=== PATIENT | female | born 2000 | race Caucasian/White ===

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

== ENCOUNTER 2019-08-18 22:15 | Emergency (ER) | payer MEDICAID, OTHER ==
[2019-08-18 22:48] VITALS: BP 116/78; PULSE 96; RESP 18; TEMP 97.9
--- NOTE | 2019-08-18 23:14 | ED ---
Upper Extremity HPI - General Chief Complaint: Extremity Injury, Upper Stated Complaint: Elbow Injury Time Seen by Provider: 08/18/19 22:50 Source: patient, RN notes reviewed, old records reviewed Mode of arrival: ambulatory Limitations: no limitations - History of Present Illness Initial Comments: Patient is a 19-year-old female presents emergency room today complaining of right elbow pain. Patient reportedly fell while rollerblading on outstretched hand. She complains of pain in the forearm and the elbow. She denies any wrist or hand pain. She is right-handed. She states she's previously seen orthopedic Dr. Burgos or other injuries. Patient denies any head or neck pain or other injury related to falling. - Related Data Home Medications Medication Instructions Recorded Confirmed buPROPion [Wellbutrin] 450 mg PO DAILY 01/29/16 12/19/17 lamoTRIgine [LaMICtal] 200 mg PO DAILY 01/29/16 12/19/17 Previous Rx's Medication Instructions Recorded Ibuprofen [Motrin] 600 mg PO Q8HR PRN #20 tab 08/19/19 Allergies Allergy/AdvReac Type Severity Reaction Status Date / Time Macrolide Antibiotics Allergy Rash/Hives Verified 08/18/19 22:48 Penicillins Allergy Rash/Hives Verified 08/18/19 22:48 Review of Systems ROS Statement: Those systems with pertinent positive or pertinent negative responses have been documented in the HPI. ROS Other: All systems not noted in ROS Statement are negative. Past Medical History Past Medical History: No Reported History Additional Past Medical History / Comment(s): depression History of Any Multi-Drug Resistant Organisms: None Reported Past Surgical History: No Surgical Hx Reported Past Psychological History: Bipolar, Depression Smoking Status: Never smoker Past Alcohol Use History: Occasional Past Drug Use History: None Reported General Exam - General Exam Comments Initial Comments: 19 year old female no distress. Limitations: no limitations General appearance: alert, in no apparent distress Head exam: Present: atraumatic, normocephalic, normal inspection Eye exam: Present: normal appearance, PERRL, EOMI. Absent: scleral icterus, conjunctival injection, periorbital swelling ENT exam: Present: normal exam, mucous membranes moist Neck exam: Present: normal inspection. Absent: tenderness, meningismus, lymphadenopathy Respiratory exam: Present: normal lung sounds bilaterally. Absent: respiratory distress, wheezes, rales, rhonchi, stridor Cardiovascular Exam: Present: regular rate, normal rhythm, normal heart sounds. Absent: systolic murmur, diastolic murmur, rubs, gallop, clicks GI/Abdominal exam: Present: soft, normal bowel sounds. Absent: distended, tenderness, guarding, rebound, rigid Right Upper Arm exam: Present: normal inspection, full ROM Elbow exam: Present: tenderness (radial head), swelling. Absent: normal inspection Forearm Wrist exam: Present: normal inspection. Absent: full ROM (pain with pronotion and supination) Neurological exam: Present: alert, oriented X3, CN II-XII intact Course Vital Signs 08/18/19 22:45 Temperature 97.9 F Pulse Rate 96 Respiratory 18 Rate Blood Pressure 116/78 O2 Sat by Pulse 100 Oximetry Procedures - Orthopedic Splinting/Casting Injury #1 Side: right Upper Extremity Injury Location: elbow Upper Extremity Immobilizer: sugar tong splint, Laz wrap, synthetic pre-padded splint Medical Decision Making - Medical Decision Making 19 year old female presents with R elbow injury after rollerbladding and falling on outstretched hand. Patient has swelling over right elbow. Patient xray shows joint effusiona nd to anticipate an occult fracture. Patient is neurovascularly intact. Patient placed in sugar tong splint and sling. Advised ortho follow up. - Radiology Data Radiology results: report reviewed Xray elbow shows joint effusion, suspected occult fracture. Disposition Clinical Impression: Elbow joint effusion, Right radial head fracture Disposition: HOME SELF-CARE Condition: Good Instructions (If sedation given, give patient instructions): Elbow Fracture (ED) Additional Instructions: Please use medication as discussed. Remain in splint all the time until ortho follow up. Please follow up with family doctor if symptoms have not improved over the next two days. Please return to the emergency room if your symptoms increase or worsen or for any other concerns. Prescriptions: Ibuprofen [Motrin] 600 mg PO Q8HR PRN #20 tab PRN Reason: Pain Is patient prescribed a controlled substance at d/c from ED?: No Referrals: Dario Whalen MD [Primary Care Provider] - 1-2 days Jamil Erickson MD [STAFF PHYSICIAN] - 1-2 days Time of Disposition: 00:08
--- NOTE | 2019-08-18 23:54 | XR ---
EXAMINATION TYPE: XR elbow complete RT DATE OF EXAM: 08/18/2019 COMPARISON: NONE HISTORY: Pain TECHNIQUE: 3 views FINDINGS: I see no fracture nor dislocation. There is however significant elbow joint effusion with p osterior fat pad sign. IMPRESSION: Elbow joint effusion. Occult fracture is suspected. No fracture line identified.
--- NOTE | 2019-08-18 23:55 | XR ---
EXAMINATION TYPE: XR forearm RT DATE OF EXAM: 08/18/2019 COMPARISON: NONE HISTORY: Pain TECHNIQUE: 2 views FINDINGS: Radius and ulna appear intact. I see no fracture nor dislocation. There is elbow joint effu daphne. Wrist joint appears intact. IMPRESSION: No fracture seen. Elbow joint effusion is present.
[2019-08-19] MEDS ORDERED: ONDANSETRON 4 MG ODT STARTER PACK 2 TAB BTL PO STA (00:10)
[2019-08-19] MEDS ORDERED: ACET/COD 300 MG/30 MG STARTER PACK 6 TAB BTL PO STA (00:10)
== END 2019-08-19 00:25 | disposition home or self-care (01) ==
LOC: EC 22:15
DX: S52.121A Displaced fracture of head of right radius, initial encounter for closed fracture (principal); F31.9 Bipolar disorder, unspecified; Z79.899 Other long term (current) drug therapy; Z88.0 Allergy status to penicillin; Z88.1 Allergy status to other antibiotic agents; V00.121A Fall from non-in-line roller-skates, initial encounter; Y93.51 Activity, roller skating (inline) and skateboarding
CPT/HCPCS: 99284; 29125; 73080; 73090; S0119

== ENCOUNTER 2019-12-01 21:47 | Emergency (ER) | payer MEDICAID, OTHER ==
[2019-12-01] MEDS ORDERED: SODIUM CHLORIDE 0.9% 1,000 ML IV ONE (22:20)
[2019-12-01] MEDS ORDERED: KETOROLAC 15 MG/ML 1 ML VIAL IVP STA (22:20)
[2019-12-01 22:59] LABS: Basophils % (A) 0 %; Eosinophils # (A) 0.3 k/uL (0-0.7); Eosinophils % (A) 4 %; HCT 43.2 % (34.0-46.0); HGB 14.1 gm/dL (11.4-16.0); Lymphocytes # (A) 1.3 k/uL (1.0-4.8); Lymphocytes % (A) 14 %; MCH 30.1 pg (25.0-35.0); MCHC 32.8 g/dL (31.0-37.0); MCV 91.8 fL (80.0-100.0); Mean Platelet Volume 6.7; Monocytes # (A) 0.4 k/uL (0-1.0); Monocytes % (A) 4 %; Neutrophils # (A) 7.3 k/uL (1.3-7.7); Neutrophils % (A) 77 %; Platelet Count 397 k/uL (150-450); RDW 12.4 % (11.5-15.5); WBC 9.5 k/uL (3.8-10.6)
[2019-12-01 23:02] LABS: Bacteria,Urine Few /hpf; Budding Yeast,Urine Many /hpf; Mucus,Urine Many /hpf; RBC,Urine >182 /hpf (0-5); Squamous Epithelial Cell,Urine 7 /hpf (0-4); WBC,Urine >182 /hpf (0-5)
[2019-12-01 23:04] LABS: Color,Urine Dark Red
[2019-12-01 23:05] LABS: Appearance,Urine Bloody (Clear)
--- NOTE | 2019-12-01 23:19 | ED ---
General Adult HPI - General Chief complaint: Urogenital Stated complaint: Blood in Urine Time Seen by Provider: 12/01/19 22:07 Source: patient Mode of arrival: ambulatory Limitations: no limitations - History of Present Illness Initial comments: 19-year-old female patient presents to the emergency department today for evaluation of blood in her urine. Patient states that yesterday she is having some mild generalized abdominal cramping. States that today she continued to have like suprapubic cramping and then noticed that her urine was turning red. Patient states she is having pain more on the right side and in the right flank region. She denies dysuria or urinary frequency. She states that she has felt chilled and nauseated. Denies any vomiting. Denies any known fever. Denies chance of , states she receives Depo-Provera shot. States that she had some vaginal spotting about a month and a half ago, states this is usual for her periods given control. She denies history of abdominal surgery. Denies history of kidney stone. Patient denies any recent rash, cough, shortness of breath, chest pain, diarrhea, constipation, back pain, numbness, tingling, dizziness, weakness, headache, visual changes, or any other complaints. - Related Data Home Medications Medication Instructions Recorded Confirmed buPROPion [Wellbutrin] 450 mg PO DAILY 01/29/16 12/02/19 lamoTRIgine [LaMICtal] 200 mg PO DAILY 01/29/16 12/02/19 Previous Rx's Medication Instructions Recorded Ibuprofen [Motrin] 600 mg PO Q8HR PRN #20 tab 08/19/19 Cephalexin [Keflex] 500 mg PO Q6HR #40 cap 12/02/19 Allergies Allergy/AdvReac Type Severity Reaction Status Date / Time Macrolide Antibiotics Allergy Rash/Hives Verified 12/01/19 21:49 Penicillins Allergy Rash/Hives Verified 12/01/19 21:49 Review of Systems ROS Statement: Those systems with pertinent positive or pertinent negative responses have been documented in the HPI. ROS Other: All systems not noted in ROS Statement are negative. Past Medical History Past Medical History: No Reported History Additional Past Medical History / Comment(s): depression History of Any Multi-Drug Resistant Organisms: None Reported Past Surgical History: No Surgical Hx Reported Past Psychological History: Bipolar, Depression Smoking Status: Never smoker Past Alcohol Use History: Occasional Past Drug Use History: None Reported General Exam Limitations: no limitations General appearance: alert, in no apparent distress, other (This is a well-developed, well-nourished adult female patient in no acute distress. Vital signs upon presentation are temperature 98.7F, pulse 108, respirations 16, blood pressure 122/79, pulse ox 97% on room air.) Eye exam: Present: normal appearance, PERRL, EOMI. Absent: scleral icterus, con junctival injection, periorbital swelling ENT exam: Present: normal exam, normal oropharynx, mucous membranes moist Respiratory exam: Present: normal lung sounds bilaterally. Absent: respiratory distress, wheezes, rales, rhonchi, stridor Cardiovascular Exam: Present: regular rate, normal rhythm, normal heart sounds. Absent: systolic murmur, diastolic murmur, rubs, gallop, clicks GI/Abdominal exam: Present: soft, normal bowel sounds. Absent: distended, tenderness, guarding, rebound, rigid Back exam: Present: normal inspection. Absent: CVA tenderness (R), CVA tendern ess (L) Neurological exam: Present: alert, oriented X3, CN II-XII intact Psychiatric exam: Present: normal affect, normal mood Skin exam: Present: warm, dry, intact, normal color. Absent: rash Course Vital Signs 12/01/19 12/02/19 21:49 00:40 Temperature 98.7 F 96.8 F L Pulse Rate 108 H 104 H Respiratory 16 20 Rate Blood Pressure 122/79 120/67 O2 Sat by Pulse 97 99 Oximetry Medical Decision Making - Medical Decision Making 19-year-old female patient presents to the emergency department today for andreas luation of blood in her urine and suprapubic cramping. Physical examination revealed no CVA tenderness. No abdominal tenderness. Labs reviewed and did reveal normal white blood cell count. Creatinine was 1.11. Urinalysis showed a dark red, bloody appearance, greater than 182 red blood cells, greater than 182 white blood cells, many white blood cell clumps, 7 squamous epithelial cells, few bacteria, many mucus, many. She did have a negative test. CT of the abdomen and pelvis without contrast was obtained, no evidence for kidney stone, no other abnormalities noted. We did discuss her results. She was given IV fluids, IV Rocephin. She'll be discharged with prescription for Keflex to treat hemorrhagic cystitis. Instructed to follow-up with her primary care physician for recheck in 1-2 days. Return parameters were discussed in detail. She verbalizes understanding and agrees with this plan. - Lab Data Result diagrams: 12/01/19 22:43 12/01/19 22:43 Lab Results 12/01/19 12/01/19 12/01/19 Range/Units 22:43 22:43 22:43 WBC 9.5 (3.8-10.6) k/uL RBC 4.70 (3.80-5.40) m/uL Hgb 14.1 (11.4-16.0) gm/dL Hct 43.2 (34.0-46.0) % MCV 91.8 (80.0-100.0) fL MCH 30.1 (25.0-35.0) pg MCHC 32.8 (31.0-37.0) g/dL RDW 12.4 (11.5-15.5) % Plt Count 397 (150-450) k/uL Neutrophils % 77 % Lymphocytes % 14 % Monocytes % 4 % Eosinophils % 4 % Basophils % 0 % Neutrophils # 7.3 (1.3-7.7) k/uL Lymphocytes # 1.3 (1.0-4.8) k/uL Monocytes # 0.4 (0-1.0) k/uL Eosinophils # 0.3 (0-0.7) k/uL Basophils # 0.0 (0-0.2) k/uL Sodium (137-145) mmol/L Potassium (3.5-5.1) mmol/L Chloride (98-107) mmol/L Carbon Dioxide (22-30) mmol/L Anion Gap mmol/L BUN (7-17) mg/dL Creatinine (0.52-1.04) mg/dL Est GFR (CKD-EPI)AfAm (>60 ml/min/1.73 sqM) Est GFR (CKD-EPI)NonAf (>60 ml/min/1.73 sqM) Glucose (74-99) mg/dL Calcium (8.4-10.2) mg/dL Total Bilirubin (0.2-1.3) mg/dL AST (14-36) U/L ALT (4-34) U/L Alkaline Phosphatase (38-126) U/L Total Protein (6.3-8.2) g/dL Albumin (3.5-5.0) g/dL Urine Color Dark Red Urine Appearance Bloody H (Clear) Urine RBC >182 H (0-5) /hpf Urine WBC >182 H (0-5) /hpf Urine WBC Clumps Many H (None) /hpf Ur Squamous Epith Cells 7 H (0-4) /hpf Urine Bacteria Few H (None) /hpf Urine Mucus Many H (None) /hpf Urine Yeast (Budding) Many H (None) /hpf Urine HCG, Qual Not Detected (Not Detectd) 12/01/19 Range/Units 22:43 WBC (3.8-10.6) k/uL RBC (3.80-5.40) m/uL Hgb (11.4-16.0) gm/dL Hct (34.0-46.0) % MCV (80.0-100.0) fL MCH (25.0-35.0) pg MCHC (31.0-37.0) g/dL RDW (11.5-15.5) % Plt Count (150-450) k/uL Neutrophils % % Lymphocytes % % Monocytes % % Eosinophils % % Basophils % % Neutrophils # (1.3-7.7) k/uL Lymphocytes # (1.0-4.8) k/uL Monocytes # (0-1.0) k/uL Eosinophils # (0-0.7) k/uL Basophils # (0-0.2) k/uL Sodium 140 (137-145) mmol/L Potassium 3.9 (3.5-5.1) mmol/L Chloride 105 (98-107) mmol/L Carbon Dioxide 26 (22-30) mmol/L Anion Gap 9 mmol/L BUN 7 (7-17) mg/dL Creatinine 1.11 H (0.52-1.04) mg/dL Est GFR (CKD-EPI)AfAm 82 (>60 ml/min/1.73 sqM) Est GFR (CKD-EPI)NonAf 71 (>60 ml/min/1.73 sqM) Glucose 114 H (74-99) mg/dL Calcium 10.1 (8.4-10.2) mg/dL Total Bilirubin 0.5 (0.2-1.3) mg/dL AST 33 (14-36) U/L ALT 21 (4-34) U/L Alkaline Phosphatase 85 (38-126) U/L Total Protein 7.7 (6.3-8.2) g/dL Albumin 4.9 (3.5-5.0) g/dL Urine Color Urine Appearance (Clear) Urine RBC (0-5) /hpf Urine WBC (0-5) /hpf Urine WBC Clumps (None) /hpf Ur Squamous Epith Cells (0-4) /hpf Urine Bacteria (None) /hpf Urine Mucus (None) /hpf Urine Yeast (Budding) (None) /hpf Urine HCG, Qual (Not Detectd) - Radiology Data Radiology results: report reviewed, image reviewed CT abdomen and pelvis without contrast was obtained. Report was reviewed in its entirety. Impression by Dr. Arrington shows no evidence of renal stone or obstruction. No sign of appendicitis. Appendix is not seen Disposition Clinical Impression: Hemorrhagic cystitis Disposition: HOME SELF-CARE Condition: Good Instructions (If sedation given, give patient instructions): Urinary Tract Infection in Women (ED) Additional Instructions: Increase fluids. Complete antibiotic prescription in full. Follow-up with your primary care physician for recheck in 1-2 days. Return to the emergency department immediately for any new, worsening, or concerning symptoms. Prescriptions: Cephalexin [Keflex] 500 mg PO Q6HR #40 cap Is patient prescribed a controlled substance at d/c from ED?: No Referrals: Dario Whalen MD [Primary Care Provider] - 1-2 days Time of Disposition: 00:32
[2019-12-01 23:20] LABS: Albumin 4.9 g/dL (3.5-5.0); Calcium 10.1 mg/dL (8.4-10.2); Potassium 3.9 mmol/L (3.5-5.1); Total Bilirubin 0.5 mg/dL (0.2-1.3); Total Protein 7.7 g/dL (6.3-8.2)
--- NOTE | 2019-12-02 00:12 | CT ---
EXAMINATION TYPE: CT abdomen pelvis wo con DATE OF EXAM: 12/01/2019 COMPARISON: None HISTORY: Blood in urine, back pain, right flank pain, not . DLP: CT DLP: 391.5 mGycm Automated exposure control for dose reduction was used. Lung bases are clear. There is no pleural effusion. Heart size is normal. There is no pericardial eff usion. Liver spleen pancreas gallbladder appear normal. Bile ducts are not dilated. Stomach is large. There is no adrenal mass. Kidneys have normal size. There is no hydronephrosis. Ure ters are not dilated. There is no retroperitoneal adenopathy. Bladder distends smoothly. Uterus is an teverted. There is no inguinal hernia. There is no evidence of pelvic mass. There is no free fluid in the pelvis. Lumbar vertebra have normal spacing and alignment. Posterior elements are intact. The bony pelvis is intact. Hip joints appear normal. There is no mesenteric edema. There is no ascites or free air. There is no bowel obstruction appendix is not seen. There is no sign of thickened appendix. IMPRESSION: No evidence of renal stone or obstruction. No sign of appendicitis. Appendix is not seen.
[2019-12-02] MEDS ORDERED: cefTRIAXone IN SWFI 1,000 MG/10 ML SYRINGE IVP ONE (00:18)
[2019-12-02 00:48] VITALS: BP 120/67; PULSE 104; RESP 20; TEMP 96.8
== END 2019-12-02 00:40 | disposition home or self-care (01) ==
LOC: EC 21:47
DX: N30.81 Other cystitis with hematuria (principal); F31.9 Bipolar disorder, unspecified; Z79.899 Other long term (current) drug therapy; Z88.0 Allergy status to penicillin; Z88.1 Allergy status to other antibiotic agents
CPT/HCPCS: 36415; 80053; 85025; 81025; 87086; 74176; 99284; 96374; 96375; 96361 ×2; J0696; J1885

== ENCOUNTER 2019-12-23 21:07 | Emergency (ER) | payer MEDICAID, OTHER ==
[2019-12-23 22:12] LABS: Appearance,Urine Clear (Clear); Bilirubin,Urine Negative (Negative); Blood,Urine Moderate (Negative); Color,Urine Light Yellow; Glucose,Urine (UA) Negative (Negative); Ketones,Urine Negative (Negative); Leukocyte Esterase,Urine Negative (Negative); Mucus,Urine Rare /hpf; Nitrite,Urine Negative (Negative); PH, Urine 5.5 (5.0-8.0); Protein,Urine Negative (Negative); RBC,Urine 2 /hpf (0-5); Specific Gravity,Urine 1.019 (1.001-1.035); Squamous Epithelial Cell,Urine 2 /hpf (0-4); Urobilinogen,Urine <2.0 mg/dL (<2.0); WBC,Urine 1 /hpf (0-5)
--- NOTE | 2019-12-23 23:04 | ED ---
Female Urogenital HPI - General Source: patient Mode of arrival: ambulatory Limitations: no limitations - History of Present Illness Last Menstrual Period: 12/23/19 <Joyce Milton - Last Filed: 12/23/19 23:01> <Maddi Cole - Last Filed: 12/24/19 00:09> - General Chief complaint: Vaginal Bleeding Stated complaint: Abn Menstrual Bleeding Time Seen by Provider: 12/23/19 21:22 - History of Present Illness Initial comments: Patient is a 19-year-old female presenting to the emergency Department with complaints of heavy vaginal bleeding and cramping since last night. Patient states she is normally on the depo shot for control but states she missed her shot by one month unknowingly. Patient states last night she started having a heavy menstrual flow, she went to bed with a tampon and a pad and did end up bleeding through both when she woke up this morning. She states the flow has continued to be heavy. She is also complaining of lower pelvic cramping on both sides. She denies any nausea, vomiting, upper abdominal pain. She denies any fever or chills. She states she has been sexually active, does not know she is . She denies any lightheadedness, blurry vision. She denies any new medications. She has no further complaints at this time. Upon arrival to the ER, her vital signs are stable. (Joyce Milton) - Related Data Home Medications Medication Instructions Recorded Confirmed buPROPion [Wellbutrin] 450 mg PO DAILY 01/29/16 12/02/19 lamoTRIgine [LaMICtal] 200 mg PO DAILY 01/29/16 12/02/19 Previous Rx's Medication Instructions Recorded Ibuprofen [Motrin] 600 mg PO Q8HR PRN #20 tab 08/19/19 Cephalexin [Keflex] 500 mg PO Q6HR #40 cap 12/02/19 Allergies Allergy/AdvReac Type Severity Reaction Status Date / Time Macrolide Antibiotics Allergy Rash/Hives Verified 12/23/19 21:14 Penicillins Allergy Rash/Hives Verified 12/23/19 21:14 Review of Systems ROS Other: All systems not noted in ROS Statement are negative. <Joyce Milton - Last Filed: 12/23/19 23:01> ROS Other: All systems not noted in ROS Statement are negative. <Maddi Cole P - Last Filed: 12/24/19 00:09> ROS Statement: Those systems with pertinent positive or pertinent negative responses have been documented in the HPI. Past Medical History Past Medical History: No Reported History Additional Past Medical History / Comment(s): depression History of Any Multi-Drug Resistant Organisms: None Reported Past Surgical History: No Surgical Hx Reported Past Psychological History: ADD/ADHD, Bipolar, Depression Smoking Status: Never smoker Past Alcohol Use History: Occasional Past Drug Use History: None Reported <Joyce Milton - Last Filed: 12/23/19 23:01> General Exam Limitations: no limitations <Joyce Milton - Last Filed: 12/23/19 23:01> - General Exam Comments Initial Comments: GENERAL: Patient is well-developed and well-nourished. Patient is nontoxic and in no acute distress. HEAD: Atraumatic, normocephalic. EYES: Pupils equal round and reactive to light, extraocular movements intact, sclera anicteric, conjunctiva are normal. Eyelids were unremarkable. ENT: TMs normal, nares patent, oropharynx clear without exudates. Moist mucous membranes. NECK: Normal range of motion, supple without lymphadenopathy or JVD. LUNGS: Unlabored respirations. Breath sounds clear to auscultation bilaterally and equal. No wheezes rales or rhonchi. HEART: Regular rate and rhythm without murmurs, rubs or gallops. ABDOMEN: Mild tenderness to palpation of the suprapubic, entire lower abdomen. Soft, normoactive bowel sounds. No guarding, no rebound. No masses appreciated. : Deferred MUSCULOSKELETAL: Normal extremities with adequate strength and normal range of motion, no pitting or edema. No clubbing or cyanosis. NEUROLOGICAL: Patient is alert and oriented x 3. Motor and sensory are also intact. Cranial nerves II through XII grossly intact. Symmetrical smile. Normal speech, normal gait. PSYCH: Normal mood, normal affect. SKIN: Warm, Dry, normal turgor, no rashes or lesions noted. (Joyce Milton) Course Vital Signs 12/23/19 21:11 Temperature 97.6 F Pulse Rate 89 Respiratory 18 Rate Blood Pressure 130/78 O2 Sat by Pulse 98 Oximetry Medical Decision Making <Joyce Milton - Last Filed: 12/23/19 23:01> - Medical Decision Making Patient is a 19-year-old female here for heavy menstrual bleeding as well as lower abdominal cramping since yesterday. She did miss her depo shot by 1 month unknowingly. Her UA shows moderate amount of blood, no evidence of infection, urine hCG is not detected. I did order an ultrasound (Joyce Milton) - Lab Data Lab Results 12/23/19 12/23/19 Range/Units 21:58 21:58 Urine Color Light Yellow Urine Appearance Clear (Clear) Urine pH 5.5 (5.0-8.0) Ur Specific [place] 1.019 (1.001-1.035) Urine Protein Negative (Negative) Urine Glucose (UA) Negative (Negative) Urine Ketones Negative (Negative) Urine Blood Moderate H (Negative) Urine Nitrite Negative (Negative) Urine Bilirubin Negative (Negative) Urine Urobilinogen <2.0 (<2.0) mg/dL Ur Leukocyte Esterase Negative (Negative) Urine RBC 2 (0-5) /hpf Urine WBC 1 (0-5) /hpf Ur Squamous Epith Cells 2 (0-4) /hpf Urine Mucus Rare H (None) /hpf Urine HCG, Qual Not Detected (Not Detectd) Disposition <Joyce Milton - Last Filed: 12/23/19 23:01> Is patient prescribed a controlled substance at d/c from ED?: No <Maddi Cole - Last Filed: 12/24/19 00:09> Clinical Impression: Menorrhagia Disposition: HOME SELF-CARE Condition: Stable Additional Instructions: Heavy vaginal bleeding is likely related to missed depo shot Your Ultrasound is normal Follow up with Gynecology for repeat depo shot Return to the ER for any worsening bleeding, filling >1 pad/hr for more than 3h, or if you develop any lightheadedness, chest pain, palpitations or any new or concerning symptoms Referrals: Dario Whalen MD [Primary Care Provider] - 1-2 days
--- NOTE | 2019-12-23 23:50 | US ---
EXAMINATION TYPE: US transvaginal DATE OF EXAM: 12/23/2019 COMPARISON: CT CLINICAL HISTORY: heavy vaginal bleeding, pain. Pain and heavy vaginal bleeding x 1 day. Patient was on Depo shot but is not currently. G0. LMP unknown. TECHNIQUE: Transvaginal (TV). Date of LMP: EXAM MEASUREMENTS: Uterus: 6.5 x 3.9 x 3.2 cm Endometrial Stripe: 0.23 cm Right Ovary: 3.8 x 1.8 x 1.5 cm Left Ovary: 3.2 x 1.3 x 1.5 cm 1. Uterus: Anteverted No abnormalities seen. 2. Endometrium: Appears wnl. 3. Right Ovary: Appears slightly enlarged. Anechoic areas seen. Largest measures: 1.2 x 0.7 x 0.6 cm . 4. Left Ovary: Area of mixed echogenicity and peripheral vascularity seen measurin.2 x 0.8 x 0.8 cm. Spectral, color and waveform doppler imaging shows arterial and venous flow within the ovaries. 5. Bilateral Adnexa: Anechoic fluid-appearing area seen in the right adnexa measurin.4 x 1.3 x 1 .1 cm. 6. Posterior cul-de-sac: Minimal fluid seen. IMPRESSION: No evidence of ovarian torsion. No adnexal mass. Normal uterus and endometrium. Small amount of free fluid is probably physiologic.
[2019-12-24 00:20] VITALS: BP 120/82; PULSE 74; RESP 16; TEMP 98
== END 2019-12-24 00:20 | disposition home or self-care (01) ==
LOC: EC 21:07
DX: N92.0 Excessive and frequent menstruation with regular cycle (principal); R10.30 Lower abdominal pain, unspecified; F90.9 Attention-deficit hyperactivity disorder, unspecified type; F31.9 Bipolar disorder, unspecified; Z79.899 Other long term (current) drug therapy; Z88.0 Allergy status to penicillin; Z88.1 Allergy status to other antibiotic agents
CPT/HCPCS: 76830; 81001; 81025; 93975; 99284

== ENCOUNTER 2020-04-18 00:05 | Emergency (ER) | payer MEDICAID, OTHER ==
[2020-04-18 00:15] VITALS: TEMP 98.7
[2020-04-18] MEDS ORDERED: SODIUM CHLORIDE 0.9% 1,000 ML IV STA (00:35)
[2020-04-18 00:45] LABS: Appearance,Urine Cloudy (Clear); Bilirubin,Urine Negative (Negative); Blood,Urine Moderate (Negative); Calcium Oxalate Crystals,Urine Many /hpf; Color,Urine Dark Yellow; Glucose,Urine (UA) Negative (Negative); Ketones,Urine Negative (Negative); Leukocyte Esterase,Urine Negative (Negative); Mucus,Urine Many /hpf; Nitrite,Urine Negative (Negative); Protein,Urine Trace (Negative); RBC,Urine 49 /hpf (0-5); Specific Gravity,Urine 1.034 (1.001-1.035); Squamous Epithelial Cell,Urine 1 /hpf (0-4); WBC,Urine 3 /hpf (0-5)
[2020-04-18 00:52] LABS: Basophils % (A) 1 %; Eosinophils # (A) 0.2 k/uL (0-0.7); Eosinophils % (A) 3 %; HCT 39.2 % (34.0-46.0); HGB 13.7 gm/dL (11.4-16.0); Lymphocytes % (A) 28 %; MCH 31.4 pg (25.0-35.0); MCHC 34.8 g/dL (31.0-37.0); MCV 90.2 fL (80.0-100.0); Mean Platelet Volume 6.9; Monocytes # (A) 0.3 k/uL (0-1.0); Monocytes % (A) 5 %; Neutrophils # (A) 4.4 k/uL (1.3-7.7); Neutrophils % (A) 62 %; Platelet Count 314 k/uL (150-450); RBC 4.35 m/uL (3.80-5.40); RDW 13.1 % (11.5-15.5); WBC 7.1 k/uL (3.8-10.6)
[2020-04-18] MEDS ORDERED: KETOROLAC 15 MG/ML 1 ML VIAL IVP STA ×2 (00:57→01:52)
--- NOTE | 2020-04-18 01:00 | ED ---
General Adult HPI - General Chief complaint: Urogenital Stated complaint: Flank pain Time Seen by Provider: 04/18/20 00:22 Source: patient, family, RN notes reviewed Mode of arrival: wheelchair Limitations: no limitations - History of Present Illness Initial comments: 19-year-old female with a past medical history of depression presents to the emergency department for right side pain. Patient states that she had right side pain starting earlier today. States it is a cramping pain throughout her low abdomen but worse on the right side. She noticed some light spotting today as well. States it is not time for her to demonstrating as this usually happens closer to when she needs her Depo shot. She denies vaginal discharge. Denies fevers or chills. Patient denies nausea vomiting diarrhea. Denies fevers or chills.Patient has no other complaints at this time including shortness of breath, chest pain, nausea or vomiting, headache, or visual changes. - Related Data Home Medications Medication Instructions Recorded Confirmed buPROPion [Wellbutrin] 450 mg PO DAILY 01/29/16 12/02/19 lamoTRIgine [LaMICtal] 200 mg PO DAILY 01/29/16 12/02/19 Previous Rx's Medication Instructions Recorded Ibuprofen [Motrin] 600 mg PO Q8HR PRN #20 tab 08/19/19 Cephalexin [Keflex] 500 mg PO Q6HR #40 cap 12/02/19 Ibuprofen [Motrin] 600 mg PO Q8HR PRN #20 tab 04/18/20 Ondansetron [Zofran ODT] 4 mg PO Q8HR PRN #15 tab 04/18/20 Tamsulosin [Flomax] 0.4 mg PO DAILY #10 cap 04/18/20 Allergies Allergy/AdvReac Type Severity Reaction Status Date / Time Macrolide Antibiotics Allergy Rash/Hives Verified 04/18/20 00:15 Penicillins Allergy Rash/Hives Verified 04/18/20 00:15 Review of Systems ROS Statement: Those systems with pertinent positive or pertinent negative responses have been documented in the HPI. ROS Other: All systems not noted in ROS Statement are negative. Past Medical History Past Medical History: No Reported History Additional Past Medical History / Comment(s): depression History of Any Multi-Drug Resistant Organisms: None Reported Past Surgical History: No Surgical Hx Reported Past Psychological History: ADD/ADHD, Bipolar, Depression Smoking Status: Never smoker Past Alcohol Use History: Occasional Past Drug Use History: None Reported General Exam Limitations: no limitations General appearance: alert, in no apparent distress Head exam: Present: atraumatic, normal inspection Eye exam: Present: normal appearance, PERRL, EOMI. Absent: scleral icterus, conjunctival injection ENT exam: Present: normal exam, mucous membranes moist Neck exam: Present: normal inspection, full ROM. Absent: tenderness Respiratory exam: Present: normal lung sounds bilaterally. Absent: respiratory distress, wheezes Cardiovascular Exam: Present: regular rate, normal rhythm, normal heart sounds GI/Abdominal exam: Present: soft, tenderness (mild Right upper and lower abdominal tenderness), normal bowel sounds. Absent: distended, guarding, rebound, rigid Back exam: Present: CVA tenderness (R) Course Vital Signs 04/18/20 00:09 Temperature 98.7 F Pulse Rate 65 Respiratory 18 Rate Blood Pressure 119/72 O2 Sat by Pulse 100 Oximetry Medical Decision Making - Medical Decision Making Vitals are stable. Physical exam reveals a slightly tender abdomen on the right side as well as right CVA tenderness. CBC CMP unremarkable. Urinalysis does show [address] abdomen and pelvis shows a 3 mm calculus at the right UVJ causing mild hydroureteronephrosis. XR obtained for urology. Patient was started on Flomax Motrin and Zofran. She will be given Tylenol 3 for breakthrough pain. She will follow up with urology, referral given. She'll return for any worsening symptoms. Discussed with Dr Wiseman - Lab Data Result diagrams: 04/18/20 00:38 04/18/20 00:38 Lab Results 04/18/20 04/18/20 04/18/20 Range/Units 00:28 00:28 00:38 WBC 7.1 (3.8-10.6) k/uL RBC 4.35 (3.80-5.40) m/uL Hgb 13.7 (11.4-16.0) gm/dL Hct 39.2 (34.0-46.0) % MCV 90.2 (80.0-100.0) fL MCH 31.4 (25.0-35.0) pg MCHC 34.8 (31.0-37.0) g/dL RDW 13.1 (11.5-15.5) % Plt Count 314 (150-450) k/uL MPV 6.9 Neutrophils % 62 % Lymphocytes % 28 % Monocytes % 5 % Eosinophils % 3 % Basophils % 1 % Neutrophils # 4.4 (1.3-7.7) k/uL Lymphocytes # 2.0 (1.0-4.8) k/uL Monocytes # 0.3 (0-1.0) k/uL Eosinophils # 0.2 (0-0.7) k/uL Basophils # 0.0 (0-0.2) k/uL Sodium (137-145) mmol/L Potassium (3.5-5.1) mmol/L Chloride (98-107) mmol/L Carbon Dioxide (22-30) mmol/L Anion Gap mmol/L BUN (7-17) mg/dL Creatinine (0.52-1.04) mg/dL Est GFR (CKD-EPI)AfAm (>60 ml/min/1.73 sqM) Est GFR (CKD-EPI)NonAf (>60 ml/min/1.73 sqM) Glucose (74-99) mg/dL Calcium (8.4-10.2) mg/dL Total Bilirubin (0.2-1.3) mg/dL AST (14-36) U/L ALT (4-34) U/L Alkaline Phosphatase (38-126) U/L Total Protein (6.3-8.2) g/dL Albumin (3.5-5.0) g/dL Amylase (30-110) U/L Lipase (23-300) U/L Urine Color Dark Yellow Urine Appearance Cloudy H (Clear) Urine pH 6.0 (5.0-8.0) Ur Specific [place] 1.034 (1.001-1.035) Urine Protein Trace H (Negative) Urine Glucose (UA) Negative (Negative) Urine Ketones Negative (Negative) Urine Blood Moderate H (Negative) Urine Nitrite Negative (Negative) Urine Bilirubin Negative (Negative) Urine Urobilinogen 2.0 (<2.0) mg/dL Ur Leukocyte Esterase Negative (Negative) Urine RBC 49 H (0-5) /hpf Urine WBC 3 (0-5) /hpf Ur Squamous Epith Cells 1 (0-4) /hpf Calcium Oxalate Crystal Many H (None) /hpf Urine Mucus Many H (None) /hpf Urine HCG, Qual Not Detected (Not Detectd) 04/18/20 Range/Units 00:38 WBC (3.8-10.6) k/uL RBC (3.80-5.40) m/uL Hgb (11.4-16.0) gm/dL Hct (34.0-46.0) % MCV (80.0-100.0) fL MCH (25.0-35.0) pg MCHC (31.0-37.0) g/dL RDW (11.5-15.5) % Plt Count (150-450) k/uL MPV Neutrophils % % Lymphocytes % % Monocytes % % Eosinophils % % Basophils % % Neutrophils # (1.3-7.7) k/uL Lymphocytes # (1.0-4.8) k/uL Monocytes # (0-1.0) k/uL Eosinophils # (0-0.7) k/uL Basophils # (0-0.2) k/uL Sodium 138 (137-145) mmol/L Potassium 3.8 (3.5-5.1) mmol/L Chloride 106 (98-107) mmol/L Carbon Dioxide 21 L (22-30) mmol/L Anion Gap 11 mmol/L BUN 15 (7-17) mg/dL Creatinine 0.91 (0.52-1.04) mg/dL Est GFR (CKD-EPI)AfAm >90 (>60 ml/min/1.73 sqM) Est GFR (CKD-EPI)NonAf >90 (>60 ml/min/1.73 sqM) Glucose 116 H (74-99) mg/dL Calcium 9.3 (8.4-10.2) mg/dL Total Bilirubin 0.3 (0.2-1.3) mg/dL AST 25 (14-36) U/L ALT 27 (4-34) U/L Alkaline Phosphatase 72 (38-126) U/L Total Protein 6.8 (6.3-8.2) g/dL Albumin 4.1 (3.5-5.0) g/dL Amylase 61 (30-110) U/L Lipase 155 (23-300) U/L Urine Color Urine Appearance (Clear) Urine pH (5.0-8.0) Ur Specific [place] (1.001-1.035) Urine Protein (Negative) Urine Glucose (UA) (Negative) Urine Ketones (Negative) Urine Blood (Negative) Urine Nitrite (Negative) Urine Bilirubin (Negative) Urine Urobilinogen (<2.0) mg/dL Ur Leukocyte Esterase (Negative) Urine RBC (0-5) /hpf Urine WBC (0-5) /hpf Ur Squamous Epith Cells (0-4) /hpf Calcium Oxalate Crystal (None) /hpf Urine Mucus (None) /hpf Urine HCG, Qual (Not Detectd) Disposition Clinical Impression: Ureterolithiasis Disposition: HOME SELF-CARE Condition: Good Instructions (If sedation given, give patient instructions): Kidney Stones (ED) Additional Instructions: Please take Motrin for pain. If pain is severe take Tylenol 3. Take Flomax as directed. Take Zofran as needed for nausea. Follow up with urology outpatient by calling for an appointment. Return to the emergency room for any worsening symptoms. Prescriptions: Tamsulosin [Flomax] 0.4 mg PO DAILY #10 cap Ibuprofen [Motrin] 600 mg PO Q8HR PRN #20 tab PRN Reason: Pain Ondansetron [Zofran ODT] 4 mg PO Q8HR PRN #15 tab PRN Reason: Nausea Is patient prescribed a controlled substance at d/c from ED?: No Referrals: Dario Whalen MD [Primary Care Provider] - 1-2 days Luis Mills MD [STAFF PHYSICIAN] - 1-2 days Time of Disposition: 01:32
[2020-04-18 01:01] LABS: ALT 27 U/L (4-34); AST 25 U/L (14-36); African American GFR (CKD) >90 (>60 ml/min/1.73 sqM); Albumin 4.1 g/dL (3.5-5.0); Alkaline Phosphatase 72 U/L (38-126); Amylase 61 U/L (30-110); Anion Gap 11 mmol/L; Blood Urea Nitrogen 15 mg/dL (7-17); Calcium 9.3 mg/dL (8.4-10.2); Carbon Dioxide 21 mmol/L (22-30); Chloride 106 mmol/L (98-107); Glucose 116 mg/dL (74-99); Lipase 155 U/L (23-300); Non-African American GFR(CKD) >90 (>60 ml/min/1.73 sqM); Potassium 3.8 mmol/L (3.5-5.1); Sodium 138 mmol/L (137-145); Total Bilirubin 0.3 mg/dL (0.2-1.3); Total Protein 6.8 g/dL (6.3-8.2)
--- NOTE | 2020-04-18 01:25 | CT ---
EXAM: CT Abdomen and Pelvis Without Intravenous Contrast CLINICAL HISTORY: ITS.REASON CT Reason: kidney stone? r sided abd pain TECHNIQUE: Axial computed tomography images of the abdomen and pelvis without intravenous contrast. CTDI is 6.87 mGy and DLP is 381 mGy-cm. This CT exam was performed using one or more of the following dose reduction techniques: automated exposure control, adjustment of the mA and/or kV according to patient size, and/or use of iterative reconstruction technique. COMPARISON: No relevant prior studies available. FINDINGS: Lung bases: Unremarkable. ABDOMEN: Liver: Unremarkable. Gallbladder and bile ducts: Unremarkable. Pancreas: Unremarkable. Spleen: Unremarkable. Adrenals: Unremarkable. Kidneys and ureters: 3 mm calculus at the right UVJ which causes mild hydroureteronephrosis. Stomach and bowel: Unremarkable. PELVIS: Appendix: Appendix is not identified. Bladder: Unremarkable. Reproductive: Unremarkable as visualized. ABDOMEN and PELVIS: Intraperitoneal space: Unremarkable. Bones/joints: No acute fracture. No dislocation. Soft tissues: Unremarkable. Vasculature: Unremarkable. Lymph nodes: Unremarkable. IMPRESSION: 3 mm calculus at the right UVJ which causes mild hydroureteronephrosis.
[2020-04-18] MEDS ORDERED: ACET/COD 300 MG/30 MG STARTER PACK 6 TAB BTL PO STA (01:33)
--- NOTE | 2020-04-18 01:42 | XR ---
EXAM: XR Abdomen, 1 View CLINICAL HISTORY: ITS.REASON XR Reason: for urology request TECHNIQUE: Frontal supine view of the abdomen/pelvis. COMPARISON: No relevant prior studies available. FINDINGS: Gastrointestinal tract: Unremarkable. Bones/joints: Unremarkable. IMPRESSION: Normal abdominal x-ray.
[2020-04-18] MEDS ORDERED: ONDANSETRON 4 MG/2 ML VIAL IVP STA (01:52)
[2020-04-18] MEDS ORDERED: TAMSULOSIN 0.4 MG CAP.ER.24H PO STA (01:52)
[2020-04-18 02:07] VITALS: BP 124/70; PULSE 78; RESP 16
== END 2020-04-18 02:07 | disposition home or self-care (01) ==
LOC: EC 00:05
DX: N13.2 Hydronephrosis with renal and ureteral calculous obstruction (principal); F31.9 Bipolar disorder, unspecified; F90.9 Attention-deficit hyperactivity disorder, unspecified type; Z79.899 Other long term (current) drug therapy; Z88.0 Allergy status to penicillin; Z88.1 Allergy status to other antibiotic agents
CPT/HCPCS: 36415; 80053; 82150; 83690; 85025; 81001; 81025; 74018; 74176; 99284; 96374; 96375; 96376; 96361; J2405; J1885